=== PATIENT | male | born 1940 | race Caucasian/White ===

== ENCOUNTER → 2018-03-09 07:01 | Outpatient (CLI) | payer OTHER, SELFPAY ==
[2018-03-09 08:19] LABS: Alanine Aminotransferase 30 IU/L (21-72); Albumin 3.8 g/dL (3.5-5.0); Albumin Globulin Ratio 1.3 (1.0-2.8); Alkaline Phosphatase 175 U/L (38-126); Aspartate Aminotransferase 27 IU/L (17-59); BUN Creatinine Ratio 20.9 (6-22); Bilirubin Total 0.7 mg/dL (0.2-1.3); Blood Urea Nitrogen 23 mg/dL (9-20); Calcium 9.3 mg/dL (8.4-10.2); Carbon Dioxide 27 mmol/L (22-32); Chloride 108 mmol/L (98-107); Cholesterol 203 mg/dL (140-199); Estimated Glomerular Filt Rate > 60.0 mL/min (>60); Globulin 2.9 g/dL (1.7-4.1); Glucose 97 mg/dL (80-110); HDL Cholesterol 83 mg/dL (40-60); HEMOLYSIS < 15 (0-50); LDL Cholesterol Calculated 106 mg/dL (<100); Potassium 4.6 mmol/L (3.4-5.1); Sodium 144 mmol/L (137-145); Total Protein 6.7 g/dL (6.3-8.2); Triglycerides 69 mg/dL (35-150)
== END ==
PROVIDERS: Family Provider Internal Medicine; Visit Provider Internal Medicine
DX: N18.2 Chronic kidney disease, stage 2 (mild) (principal)
CPT/HCPCS: 36415; 80053; 80061

== ENCOUNTER 2018-09-14 07:44 | Day surgery (SDC) | payer OTHER, SELFPAY ==
--- NOTE | 2018-09-14 | PATH_ITS ---
[facility] Accession Number: [id number] . 01 Material submitted: . ASCENDING COLON POLYP X2 . 02 Diagnosis: Ascending Colon, Polyps x2, Biopsies: Tubular adenoma in one of four fragments. Benign lymphoid aggregate in one fragment. MRV/09/17/2018 . 02 Electronically signed: . Deisi Solis MD, Pathologist NPI- [id number] . 01 Gross description: . Received in one formalin-filled container labeled with the patient's name and labeled ascending colon polyp, are four 0.1-0.4 cm portions of tissue, entirely submitted in one cassette. ([id number]) /FRR . 02 Pathologist provided ICD-10: D12.2 . 02 CPT . 268932 Performed at: 01 [facility] [address] [id number] MD Chinedu Alcala MD Phone: [phone] Performed at: 02 [facility] [address] [place] [id number] MD Deisi Solis MD Phone: [phone]
[2018-09-14 08:03] VITALS: BP 144/91; PULSE 96; RESP 16; TEMP 36; O2SAT 96; BMI 30.6
[2018-09-14] MEDS: SODIUM CHLORIDE 0.9% 1,000 ML 200 ML IV (08:30)
--- NOTE | 2018-09-14 09:26 | PM.HP.1 ---
History of Present Illness Date Patient Seen: 09/14/18 Time Patient Seen: 09:20 Chief complaint: [id number] COLONOSCOPY Narrative: Patient here for a screening colonoscopy. 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) Sleep apnea (Chronic 2009) History of adenomatous polyp of colon (Inactive 07/30/12) Chicken pox (Resolved 1946) Colon polyps (Resolved) Fractures (Resolved 2013) Measles (Resolved 1946) Rheumatic fever (Resolved 1962) Family & Social History Family History: Reviewed 09/14/18 by Marcial Koenig MD Social History: household members spouse lives independently Yes caregiver/support person No Tobacco & Substance use: Smoking Status Former smoker alcohol intake current Meds Home Medications Medication Instructions Recorded Confirmed Type ascorbic acid (vitamin C) 500 mg mg PO cap 03/05/18 03/05/18 History capsule aspirin 81 mg tablet,delayed 81 mg PO DAILY 03/05/18 09/14/18 History release calcium carbonate 500 mg calcium 500 mg PO BID tab 03/05/18 09/14/18 History (1,250 mg) tablet cholecalciferol (vitamin D3) 1,000 1,000 unit PO DAILY 03/05/18 09/14/18 History unit capsule lutein 6 mg capsule 6 mg PO DAILY 03/05/18 09/14/18 History omega 8-czt-wrj-fish oil 1,000 mg See Label Instructions .ROUTE 03/05/18 09/14/18 History (120 mg-180 mg) capsule .COMPLEX cap Allergies Allergy/AdvReac Type Severity Reaction Status Date / Time No Known Allergies Allergy Uncoded 09/14/18 08:02 Review of Systems Review of Systems All systems reviewed & are unremarkable except as noted in HPI and below Exam Vital Signs (past 8 hours): - 09/14/18 08:03 Temperature 96.8 F L Pulse Rate 96 H Respiratory Rate 16 Blood Pressure 144/91 H Pulse Oximetry 96 Oxygen Delivery Method Room Air Narrative Exam Narrative: Co Operative no apparent distress. Lungs are clear to auscultation no rales or rhonchi. Heart regular rate and rhythm no murmur gallop. Abdomen is protuberant soft nontender without mass. Alert and oriented x3. Assessment & Plan Plan: Assessment/Plan Narrative: Patient for screening colonoscopy. I have discussed the procedure and the rationale with the patient including risks of bleeding, perforation which would necessitate a major operation, failure to find remove all lesions and the potential to tattoo. They appeared to understand and wished to proceed.
--- NOTE | 2018-09-14 09:29 | P.HP_ITS ---
History of Present Illness Date Patient Seen: 09/14/18 Time Patient Seen: 09:20 Chief complaint: [id number] COLONOSCOPY Narrative: Patient here for a screening colonoscopy. No family history and no blood in his stool Patient History Medical History Chronic renal failure, stage 2 (mild) (Chronic) Right bundle branch block (RBBB) with left anterior fascicular block (LAFB) ( Chronic) Sleep apnea (Chronic 2009) History of adenomatous polyp of colon (Inactive 07/30/12) Chicken pox (Resolved 1946) Colon polyps (Resolved) Fractures (Resolved 2013) Measles (Resolved 1946) Rheumatic fever (Resolved 1962) Family & Social History Family History: Reviewed 09/14/18 by Marcial Koenig MD Social History: household members spouse lives independently Yes caregiver/support person No Tobacco & Substance use: Smoking Status Former smoker alcohol intake current Meds Home Medications Medication Instructions Recorded Confirmed Type ascorbic acid (vitamin C) 500 mg mg PO cap 03/05/18 03/05/18 History capsule aspirin 81 mg tablet,delayed 81 mg PO DAILY 03/05/18 09/14/18 History release calcium carbonate 500 mg calcium 500 mg PO BID tab 03/05/18 09/14/18 History (1,250 mg) tablet cholecalciferol (vitamin D3) 1,000 1,000 unit PO DAILY 03/05/18 09/14/18 History unit capsule lutein 6 mg capsule 6 mg PO DAILY 03/05/18 09/14/18 History omega 2-cjd-nfo-fish oil 1,000 mg See Label Instructions .ROUTE 03/05/18 History (120 mg-180 mg) capsule .COMPLEX cap Allergies Allergy/AdvReac Type Severity Reaction Status Date / Time No Known Allergies Allergy Uncoded 09/14/18 08:02 Review of Systems Review of Systems All systems reviewed & are unremarkable except as noted in HPI and below Exam Vital Signs (past 8 hours): - 09/14/18 08:03 Temperature 96.8 F L Pulse Rate 96 H Respiratory Rate 16 Blood Pressure 144/91 H Pulse Oximetry 96 Oxygen Delivery Method Room Air Narrative Exam Narrative: Co Operative no apparent distress. Lungs are clear to auscultation no rales or rhonchi. Heart regular rate and rhythm no murmur gallop. Abdomen is protuberant soft nontender without mass. Alert and oriented x3. Assessment & Plan Plan: Assessment/Plan Narrative: Patient for screening colonoscopy. I have discussed the procedure and the rationale with the patient including risks of bleeding, perforation which would necessitate a major operation, failure to find remove all lesions and the potential to tattoo. They appeared to understand and wished to proceed.
--- NOTE | 2018-09-14 09:30 | PM.PREOP ---
Pre-operative Note Interval Note History & Physical reviewed/Exam performed by Physician: Yes Changes to H&P: No ASA Class (for procedural sedation): I
[2018-09-14] MEDS: MIDAZOLAM 5 MG/5 ML VIAL IV (09:56)
[2018-09-14] MEDS: fentaNYL 250 MCG/5 ML INJ IV (09:57)
--- NOTE | 2018-09-14 10:01 | PM.OP.ENDO ---
Operative Date/Time/Diagnoses Date of procedure: 09/14/18 Time of procedure: 10:01 Pre-op diagnosis: Screening exam. History of polyps. Last colonoscopy 5 years ago. Post-op diagnosis: same (Two tiny polyps removed. Extensive diverticulosis. Minor internal hemorrhoids.) Procedure & Clinicians Study performed: Colonoscopy with cold biopsy Same procedure as scheduled: Yes Indications: Screening Surgeon: Marcial Koenig Procedure Notes SCOAP/Timeout: Performed Procedure in detail: The patient was placed in the left lateral decubitus position and underwent IV sedation directed by the surgeon consisting of fentanyl and Versed. Digital exam was unremarkable. His prostate is flat.. The scope was inserted and advanced through the rectum into the sigmoid, descending, transverse, and ascending colon. The patient was noted to have pandiverticulosis with the by far the heaviest concentration was in the left colon. I noted 2 small polyps in the ascending colon near 1 another. These were biopsied to complete removal. I had to place a stiffener repositioned the patient and applied pressure to reach the cecum.. The cecum was reached identified by the ileocecal valve and the appendiceal opening. The scope was gradually brought out. No other Polyps were found. The scope ultimately was retroflexed in the rectum. The appearance was[]. The scope was removed and the patient tolerated the procedure well Scope withdrawal time: 9 min Sedation minutes: 31 Findings: diverticulosis (Throughout the colon but most heavily concentrated left colon), internal hemorrhoids (Minor) and polyp (Ascending colon polyps.) Specimen(s): other (Polyps) Complications: none Recommendations: Colonscopy in 5 years (If you are in good health) Follow up: as needed Disposition: PACU
[2018-09-14 10:11] VITALS: BP 119/76; PULSE 79; RESP 16; TEMP 36.2; O2SAT 98
[2018-09-14 10:25] VITALS: BP 117/82; PULSE 57; RESP 18; TEMP 36.4; O2SAT 96
--- NOTE | 2018-09-14 10:47 | SUR.PHASEII ---
arrived for filler picker, all voiced an understanding of instructions. pt left in stable condition.
== END 2018-09-14 10:45 | disposition home or self-care (01) ==
PROVIDERS: PCP Internal Medicine; Visit Provider Specialist
PROC: 0DJD8ZZ Inspection of Lower Intestinal Tract, Via Natural or Artificial Opening Endoscopic (ICD-10-PCS; CPT 45378; principal; 2018-09-14 08:45)
DX: Z86.010 Personal history of colon polyps (principal); K57.30 Diverticulosis of large intestine without perforation or abscess without bleeding; K64.8 Other hemorrhoids; D12.2 Benign neoplasm of ascending colon; N18.2 Chronic kidney disease, stage 2 (mild); I45.2 Bifascicular block; G47.30 Sleep apnea, unspecified; Z87.891 Personal history of nicotine dependence
CPT/HCPCS: 45380; 99152; 99153; J2250; J3010

== ENCOUNTER 2019-01-10 10:13 | Emergency (ER) | payer OTHER, SELFPAY ==
[2019-01-10 10:22] VITALS: BP 153/94; PULSE 102; RESP 20; O2SAT 96; BMI 28.8
--- NOTE | 2019-01-10 11:34 | ED.WOUNDLAC ---
HPI - Wound/Laceration General Chief Complaint: Wound/Laceration Stated Complaint: GASH IN RIGHT LEG/LOWER Time Seen by Provider: 01/10/19 11:26 Source: patient Mode of arrival: ambulatory Limitations: no limitations History of Present Illness HPI narrative: Patient is a 78-year-old male who presents with right leg injury. he bumped it on something has a skin tear but actually bled through his socks and his hand there is quite a bit of blood. Bleeding is now controlled. He has no numbness or tingling. Onset (ago): hour(s) Extremity Location: Right: lower leg Related Data Home Medications Medication Instructions Recorded Confirmed ascorbic acid (vitamin C) 500 mg mg PO cap 03/05/18 03/05/18 capsule aspirin 81 mg tablet,delayed 81 mg PO DAILY 03/05/18 09/14/18 release calcium carbonate 500 mg calcium 500 mg PO BID tab 03/05/18 09/14/18 (1,250 mg) tablet cholecalciferol (vitamin D3) 1,000 1,000 unit PO DAILY 03/05/18 09/14/18 unit capsule lutein 6 mg capsule 6 mg PO DAILY 03/05/18 09/14/18 omega 6-ace-ouu-fish oil 1,000 mg See Rx Instructions .ROUTE 03/05/18 09/14/18 (120 mg-180 mg) capsule .COMPLEX cap Allergies Allergy/AdvReac Type Severity Reaction Status Date / Time No Known Allergies Allergy Uncoded 09/14/18 08:02 Review of Systems Review of Systems GENERAL: Denies chills,fever HEENT: Denies throat pain RESPIRATORY: Denies dyspnea, cough, wheezing CARDIOVASCULAR: Denies chest pain, palpitations GASTROINTESTINAL: Denies nausea, vomiting MUSCULOSKELETAL: Denies extremity pain, injury SKIN: See HPI NEUROLOGIC: Denies weakness, dizziness, headache, numbness 8 point review of systems is negative except for those stated above and HPI PFSH Medical History Chronic renal failure, stage 2 (mild) (Chronic) 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) Sleep apnea (Chronic 2009) History of adenomatous polyp of colon (Inactive 07/30/12) Chicken pox (Resolved 1946) Colon polyps (Resolved) Fractures (Resolved 2013) Measles (Resolved 1946) Rheumatic fever (Resolved 1962) Family History Brother Age: 74 Family hx of colon cancer Father Cancer Liver cancer Grandfather Heart disease Mother Pneumonia Rheumatoid arthritis Paraplegia Social History marital status: number of children: 2 household members: spouse lives independently: Yes caregiver/support person: No housing: house pets and animals: Yes education level: high school 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) current occupational exposures/hazards: No suman/baptist: Rastafarian travel history: other ([employer]) leisure activities: other (Hike, Playing in garage, woodworking.) Smoking Status: Former smoker Tobacco: How many years used: 3 Smokeless tobacco user: other (Cigarettes, pipe) quit status: quit date established (1967) second hand exposure: No alcohol intake: current (Glass of wine daily, some scotch once a week.) substance use type: does not use Family History Brother Age: 74 Family hx of colon cancer Father Cancer Liver cancer Grandfather Heart disease Mother Pneumonia Rheumatoid arthritis Paraplegia Social History marital status: number of children: 2 household members: spouse lives independently: Yes caregiver/support person: No housing: house pets and animals: Yes education level: high school 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) current occupational exposures/hazards: No suman/baptist: Rastafarian travel history: other ([employer]) leisure activities: other (Hike, Playing in garage, woodworking.) Smoking Status: Former smoker Tobacco: How many years used: 3 Smokeless tobacco user: other (Cigarettes, pipe) quit status: quit date established (1967) second hand exposure: No alcohol intake: current (Glass of wine daily, some scotch once a week.) substance use type: does not use Exam Initial Vital Signs Initial Vital Signs: Vital Signs Pulse Rate 102 H 01/10/19 10:22 Respiratory Rate 20 01/10/19 10:22 Blood Pressure 153/94 H 01/10/19 10:22 Pulse Oximetry 96 05/02/19 10:22 GENERAL: Well-appearing, well-nourished and in no acute distress. CARDIOVASCULAR: peripheral pulses in tact, cap refill <2 sec RESPIRATORY: No respiratory distress, speaks in full sentences without difficulty EXTREMITIES: Normal range of motion, no clubbing or edema. Neurovascularly intact NEUROLOGICAL: Cranial nerves II through XII grossly intact. Normal gait and speech. SKIN: Skin tear right anterior chicas. Bleeding now controlled. There is a 2 cm laceration with good skin proximity. Procedures Laceration Repair Laceration 1: Site: lower extremity Side (If applicable): right Size (cm): 2 Description: linear Depth: simple, single layer Skin layer closed with: steri-strips Course Vital Signs - 8 hr 01/10/19 10:22 01/10/19 11:48 Pulse Rate 102 H 93 H Respiratory Rate 20 16 Blood Pressure 153/94 H Blood Pressure [Left Arm] 159/100 H Pulse Oximetry 96 98 MDM - Wound/Laceration MDM Narrative Medical decision making narrative: Juliet dressing placed. Overall bleeding has stopped Discharge Plan Departure Patient Disposition: Home Clinical Impression: Laceration of leg, right Qualifiers: Encounter type: initial encounter Qualified Code(s): S81.811A - Laceration without foreign body, right lower leg, initial encounter Discharge Date/Time: 01/10/19 11:51 Interventions: ED Discharge Assessment Last Done: 01/10/19 11:50 Instructions: How to Care for a Surgical Wound-Skin Adhesive Activity Restrictions/Additional Instructions: *You have been diagnosed with skin tear of right leg *What to do: Keep pink bandage on for up to 1week, it will help the wound heal. *Continue to take medications as directed *Follow up with your primary care provider in 2-3 days *Return to ER if you should have redness, swelling, pain, fever or any new, worsening or concerning symptoms Prescriptions: No Action aspirin 81 mg tablet,delayed release (DR/EC) 81 mg PO DAILY RF: 0 cholecalciferol (vitamin D3) 1,000 unit capsule 1,000 unit PO DAILY RF: 0 ascorbic acid (vitamin C) 500 mg capsule PO RF: 0 omega 8-srg-rms-fish oil [Fish Oil] 1,000 mg (120 mg-180 mg) capsule See Rx Instructions .ROUTE .COMPLEX RF: 0 lutein 6 mg capsule 6 mg PO DAILY RF: 0 calcium carbonate [Calcium 500] 500 mg calcium (1,250 mg) tablet 500 mg PO BID RF: 0 Referrals: Manjinder Hernandez MD [Primary Care Provider] -
[2019-01-10 11:48] VITALS: BP 159/100; PULSE 93; RESP 16; O2SAT 98
--- NOTE | 2019-01-10 18:06 | ED_ITS ---
HPI - Wound/Laceration General Chief Complaint: Wound/Laceration Stated Complaint: GASH IN RIGHT LEG/LOWER Time Seen by Provider: 01/10/19 11:26 Source: patient Mode of arrival: ambulatory Limitations: no limitations History of Present Illness HPI narrative: Patient is a 78-year-old male who presents with right leg injury. he bumped it on something has a skin tear but actually bled through his socks and his hand there is quite a bit of blood. Bleeding is now controlled. He has no numbness or tingling. Onset (ago): hour(s) Extremity Location: Right: lower leg Related Data Home Medications Medication Instructions Recorded Confirmed ascorbic acid (vitamin C) 500 mg mg PO cap 03/05/18 03/05/18 capsule aspirin 81 mg tablet,delayed 81 mg PO DAILY 03/05/18 09/14/18 release calcium carbonate 500 mg calcium 500 mg PO BID tab 03/05/18 09/14/18 (1,250 mg) tablet cholecalciferol (vitamin D3) 1,000 1,000 unit PO DAILY 03/05/18 09/14/18 unit capsule lutein 6 mg capsule 6 mg PO DAILY 03/05/18 09/14/18 omega 3-rdx-lju-fish oil 1,000 mg See Rx Instructions .ROUTE 03/05/18 09/14/18 (120 mg-180 mg) capsule .COMPLEX cap Allergies Allergy/AdvReac Type Severity Reaction Status Date / Time No Known Allergies Allergy Uncoded 09/14/18 08:02 Review of Systems Review of Systems GENERAL: Denies chills,fever HEENT: Denies throat pain RESPIRATORY: Denies dyspnea, cough, wheezing CARDIOVASCULAR: Denies chest pain, palpitations GASTROINTESTINAL: Denies nausea, vomiting MUSCULOSKELETAL: Denies extremity pain, injury SKIN: See HPI NEUROLOGIC: Denies weakness, dizziness, headache, numbness 8 point review of systems is negative except for those stated above and HPI PFSH Medical History Chronic renal failure, stage 2 (mild) (Chronic) Right bundle branch block (RBBB) with left anterior fascicular block (LAFB) ([facility]) Sleep apnea (Chronic 2009) History of adenomatous polyp of colon (Inactive 07/30/12) Chicken pox (Resolved 1946) Colon polyps (Resolved) Fractures (Resolved 2013) Measles (Resolved 1946) Rheumatic fever (Resolved 1962) Family History Brother Age: 74 Family hx of colon cancer Father Cancer Liver cancer Grandfather Heart disease Mother Pneumonia Rheumatoid arthritis Paraplegia Social History marital status: number of children: 2 household members: spouse lives independently: Yes caregiver/support person: No housing: house pets and animals: Yes education level: high school 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 occupational exposures/hazards: No suman/jainism: Confucianism travel history: other ([employer]) leisure activities: other (Hike, Playing in garage, woodworking.) Smoking Status: Former smoker Tobacco: How many years used: 3 Smokeless tobacco user: other (Cigarettes, pipe) quit status: quit date established (1967) second hand exposure: No alcohol intake: current (Glass of wine daily, some scotch once a week.) substance use type: does not use Family History Brother Age: 74 Family hx of colon cancer Father Cancer Liver cancer Grandfather Heart disease Mother Pneumonia Rheumatoid arthritis Paraplegia Social History marital status: number of children: 2 household members: spouse lives independently: Yes caregiver/support person: No housing: house pets and animals: Yes education level: high school 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 occupational exposures/hazards: No suman/jainism: Confucianism travel history: other ([employer]) leisure activities: other (Hike, Playing in garage, woodworking.) Smoking Status: Former smoker Tobacco: How many years used: 3 Smokeless tobacco user: other (Cigarettes, pipe) quit status: quit date established (1967) second hand exposure: No alcohol intake: current (Glass of wine daily, some scotch once a week.) substance use type: does not use Exam Initial Vital Signs Initial Vital Signs: Vital Signs Pulse Rate 102 H 01/10/19 10:22 Respiratory Rate 20 01/10/19 10:22 Blood Pressure 153/94 H 01/10/19 10:22 Pulse Oximetry 96 01/10/19 10:22 GENERAL: Well-appearing, well-nourished and in no acute distress. CARDIOVASCULAR: peripheral pulses in tact, cap refill <2 sec RESPIRATORY: No respiratory distress, speaks in full sentences without difficulty EXTREMITIES: Normal range of motion, no clubbing or edema. Neurovascularly intact NEUROLOGICAL: Cranial nerves II through XII grossly intact. Normal gait and speech. SKIN: Skin tear right anterior chicas. Bleeding now controlled. There is a 2 cm laceration with good skin proximity. Procedures Laceration Repair Laceration 1: Site: lower extremity Side (If applicable): right Size (cm): 2 Description: linear Depth: simple, single layer Skin layer closed with: steri-strips Course Vital Signs - 8 hr 01/10/19 10:22 01/10/19 11:48 Pulse Rate 102 H 93 H Respiratory Rate 20 16 Blood Pressure 153/94 H Blood Pressure [Left Arm] 159/100 H Pulse Oximetry 96 98 MDM - Wound/Laceration MDM Narrative Medical decision making narrative: Juliet dressing placed. Overall bleeding has stopped Discharge Plan Departure Patient Disposition: Home Clinical Impression: Laceration of leg, right Qualifiers: Encounter type: initial encounter Qualified Code(s): S81.811A - Laceration without foreign body, right lower leg, initial encounter Discharge Date/Time: 01/10/19 11:51 Interventions: ED Discharge Assessment Last Done: 01/10/19 11:50 Instructions: How to Care for a Surgical Wound-Skin Adhesive Activity Restrictions/Additional Instructions: *You have been diagnosed with skin tear of right leg *What to do: Keep pink bandage on for up to 1week, it will help the wound heal. *Continue to take medications as directed *Follow up with your primary care provider in 2-3 days *Return to ER if you should have redness, swelling, pain, fever or any new, worsening or concerning symptoms Prescriptions: No Action aspirin 81 mg tablet,delayed release (DR/EC) 81 mg PO DAILY RF: 0 cholecalciferol (vitamin D3) 1,000 unit capsule 1,000 unit PO DAILY RF: 0 ascorbic acid (vitamin C) 500 mg capsule PO RF: 0 omega 2-tgh-ggu-fish oil [Fish Oil] 1,000 mg (120 mg-180 mg) capsule See Rx Instructions .ROUTE .COMPLEX RF: 0 lutein 6 mg capsule 6 mg PO DAILY RF: 0 calcium carbonate [Calcium 500] 500 mg calcium (1,250 mg) tablet 500 mg PO BID RF: 0 Referrals: Manjinder Hernandez MD [Primary Care Provider] -
== END 2019-01-10 11:51 | disposition home or self-care (01) ==
PROVIDERS: Emergency Provider Emergency Medicine; PCP Internal Medicine
DX: S81.811A Laceration without foreign body, right lower leg, initial encounter (principal)
CPT/HCPCS: 99282; 99283

== ENCOUNTER → 2019-06-07 09:53 | Outpatient (CLI) | payer OTHER, SELFPAY ==
--- NOTE | 2019-06-07 09:55 | DI.RAD.S_ITS ---
PROCEDURE: XR CHEST 2V INDICATIONS: episodes of SOB TECHNIQUE: 2 views of the chest were acquired. COMPARISON: None. FINDINGS: Surgical changes and devices: None. Lungs and pleura: No acute consolidation. Scattered subsegmental atelectasis and/or scarring. No pleural effusion. No pneumothorax. Mediastinum: Mediastinal contours are normal. Heart size is normal. Bones and chest wall: Age-indeterminate mid thoracic compression fracture with mild anterior height loss. Multilevel degenerative endplate sclerosis and spurring. Diffuse facet arthropathy. Dextroscoliosis. IMPRESSION: No acute disease. Scattered scarring/atelectasis. Age-indeterminate mid thoracic compression fracture. Dextroscoliosis Dictated by: Christopher Carmona M.D. on 06/07/2019 at 10:29 Approved by: Christopher Carmona M.D. on 06/07/2019 at 10:31
[2019-06-07 10:38] LABS: Hematocrit 44.3 % (41-53); Hemoglobin 14.7 g/dL (13.5-17.5); Mean Corpuscular HGB Conc 33.3 % (30-36); Mean Corpuscular Hemoglobin 31.3 PG (26-34); Mean Corpuscular Volume 94.1 fL (80-100); Platelet Count 166 X10^3/uL (150-400); Red Cell Distribution Width 15.4 % (11.6-14.8); White Blood Cell Count 5.2 X10^3/uL (4.5-11.0)
[2019-06-07 10:48] LABS: Blood Urea Nitrogen 22 mg/dL (9-20); Calcium 9.7 mg/dL (8.4-10.2); Carbon Dioxide 30 mmol/L (22-32); Chloride 106 mmol/L (98-107); Estimated Glomerular Filt Rate > 60.0 mL/min (>60); Glucose 84 mg/dL (80-110); HEMOLYSIS < 15 (0-50); Potassium 4.8 mmol/L (3.4-5.1); Sodium 143 mmol/L (137-145)
== END ==
PROVIDERS: PCP Internal Medicine; Visit Provider Nurse Practitioner Family
DX: R06.02 Shortness of breath (principal)
CPT/HCPCS: 36415; 71046; 80048; 85027

== ENCOUNTER → 2019-06-26 06:49 | Outpatient (CLI) | payer OTHER, SELFPAY ==
--- NOTE | 2019-06-26 06:51 | DI.ECHO.S_ITS ---
[facility] +---------+ : : [address] : : : : [id number] : : : : Phone: [phone]---------+ Echocardiogram Report + + :Name: TANISHA WARD Study Date: 06/26/2019 Height: 74 in : :[facility] Weight: 225 lb : : Gender: Male BSA: 2.3 m2 : :: 1940 Age: 79 yrs BP: 146/77 mmHg: :Reason For Study: SOB : : Performed By: Cricket Linton : :Referring: FABI BALL : + + Interpretation Summary Left ventricular ejection fraction is estimated to be 55 +/- 5%. Apical hypokinesis which is more pronounced in the lateral and inferior lea. This is new since 2009 There is mild mitral regurgitation. There is mild aortic regurgitation. The right ventricular systolic pressure is estimated to be at least 23 mmHg based on an estimated right atrial pressure of 3 mm Hg. Procedure: A two-dimensional transthoracic echocardiogram with color flow and Doppler was performed. The study quality was technically good. Comparison is made with the echocardiogram of 07/14/10. The patient was in normal sinus rhythm during the exam. The patient had frequent PACs during the exam. Left Ventricle: The left ventricle is normal in size. There is normal left ventricular wall thickness. Left ventricular ejection fraction is estimated to be 55 +/- 5%. Apical hypokinesis which is more pronounced in the lateral and inferior lea. This is new since 2010. Right Ventricle: The right ventricle is at the upper limits of normal in size. The right ventricular systolic function is normal. Atria: The left atrium is moderately dilated. Right atrial size is normal. The interatrial septum is intact with no evidence for an atrial septal defect. Mitral Valve: The mitral valve is normal in structure and function. There is mild mitral annular calcification. There is mild mitral regurgitation. Aortic Valve: The aortic valve is trileaflet. The aortic valve opens well. There is mild aortic regurgitation. Tricuspid Valve: The tricuspid valve is normal in structure and function. There is trace tricuspid regurgitation. The right ventricular systolic pressure is estimated to be at least 23 mmHg based on an estimated right atrial pressure of 3 mm Hg. Pulmonic Valve: The pulmonic valve is normal in structure and function. There is no pulmonic valvular regurgitation. Great Vessels: The aortic root is normal size. The ascending aorta is mildly enlarged. The pulmonary artery is normal size. The IVC is of normal diameter and collapses greater than 50% with a sniff. This suggests a low right atrial pressure of 3 mm Hg. Pericardium/ Pleura There is no pericardial effusion. There is no pleural effusion. MMode/2D Measurements & Calculations LVIDd: 5.6 cm LVOT diam: 2.5 cm LVIDs: 3.7 cm Ao root diam: 3.8 cm FS: 34.7 % Aortic Jxn: 3.3 cm EPSS: 0.51 cm asc Aorta Diam: 3.8 cm IVSd: 1.00 cm Ao Arch Diam (Prox Trans): 3.0 cm LVPWd: 1.1 cm LV thibodeaux. diameter/BSA (cm/m^2): 2.5 LV sys. diameter/BSA (cm/m^2): 1.6 LA dimension: 4.1 cm RA long axis: 6.1 cm LA A2 area: 27.0 cm2 RA area: 21.4 cm2 LA A4 area: 29.0 cm2 RA vol: 64.5 ml LA length (vol): 6.2 cm RA : 28.2 ml/m2 LA vol: 107.8 ml IVC diam: 2.0 cm LA vol index: 47.2 ml/m2 RVD1 (basal): 4.2 cm RVD2 (mid): 4.1 cm Doppler Measurements & Calculations Ao V2 max: 166.4 cm/sec LVOT Max Pablo: 118.2 cm/sec Ao V2 mean: 124.5 cm/sec LV V1 max P.6 mmHg Ao max P.1 mmHg LV V1 VTI: 24.6 cm Ao mean P.7 mmHg ANDRES(I,D): 3.5 cm2 Ao V2 VTI: 33.8 cm ANDRES(V,D): 3.5 cm2 sev ratio: 0.73 ANDRES indexed to BSA (cm^2/m^2): 1.5 MV E max pablo: 55.8 cm/sec TR max pablo: 225.8 cm/sec MV A max pablo: 72.7 cm/sec TR max P.4 mmHg MV E/A: 0.77 PA V2 max: 79.2 cm/sec Med Peak E' Pablo: 6.5 cm/sec PA V2 mean: 60.7 cm/sec E/E' med: 8.6 PA mean P.6 mmHg Lat Peak E' Pablo: 4.1 cm/sec PA pr(Accel): 59.0 mmHg E/E' lat: 13.6 PA Accel Time: 0.05 sec E/e' average: 11.1 MV dec time: 0.15 sec SV(LVOT): 119.6 ml Reading Physician:11:09 AM
== END ==
PROVIDERS: PCP Internal Medicine; Visit Provider Nurse Practitioner Family
DX: I08.0 Rheumatic disorders of both mitral and aortic valves (principal); R06.02 Shortness of breath; I77.89 Other specified disorders of arteries and arterioles
CPT/HCPCS: 93306

== ENCOUNTER → 2019-07-16 13:40 | Outpatient (CLI) | payer OTHER, SELFPAY ==
--- NOTE | 2019-07-16 14:53 | PM.TREADMILL ---
Cardiac Stress Test Report Referral & Results Date Patient Seen: 07/16/19 Requesting provider: Manjinder Hernandez Indication: Chest symptoms Rest ECG: Right bundle branch block (old) Procedure Note: Today following both written and verbal informed consent the patient was exercised according to a standard Parminder protocol patient went for a total of 5 minutes 48 seconds achieving a maximum heart rate of 115 maximum systolic blood pressure of 180. This is approximately 7.0 METS. Exercise was terminated at this point because of targets were met. Patient was also given Cardiolite through a previously started Hep-Lock IV by the diagnostic imaging staff approximately 1 minute prior to the cessation of exercise. No ST-T segment changes Perhaps slightly tachycardic but normal blood pressure response to exercise No dysrhythmias Functional aerobic impairment rates about 10% on the active scale, patient could have continued longer but I stopped the test at the point I did because targets were achieved Impression: No evidence of ischemia based on usual ECG criteria Average exercise capacity Please see perfusion imaging report as well Please note: Actual ECG tracings can be found in the PACS system.
--- NOTE | 2019-07-17 16:56 | DI.NM.S_ITS ---
DATE OF SERVICE: 07/16/2019 PROCEDURE PERFORMED: Exercise treadmill stress and rest myocardial perfusion imaging study with gating to assess ejection fraction and regional wall motion. ORDERING PROVIDER: Vinh Leos NP INDICATIONS: The patient is a 79-year-old ex-smoker who reports acute exertional dyspnea and fatigue. EXERCISE TREADMILL TESTING: The patient was able to exercise for 5 minutes 48 seconds on a standard Parminder protocol suggesting mildly impaired exercise capacity with an JANEY of +10%. He had a moderately accelerated heart rate response to exercise with a resting heart rate of 86 bpm increasing to 130 bpm after 3 minutes of exercise with a peak HR of 150 bpm (105% of his predicted maximum). He had a normal blood pressure response. He had no chest discomfort. His resting ECG shows sinus rhythm with a RBBB and LAFB but relatively normal ST- segments. With exercise, there are no significant ST segment shifts or arrhythmias. At 4 minutes 50 seconds of exercise, at heart rate of 140 bpm, 24.8 mCi of technetium-99 Myoview was injected and the patient was imaged 15 minutes later using a gated SPECT acquisition protocol. He returned the following day and was reinjected with an additional 24.5 mCi of technetium-99 Myoview and was imaged 30 minutes later, again using a gated SPECT protocol. FINDINGS: 1. Raw Data: There is fair myocardial tracer uptake with some evidence for diaphragmatic attenuation. The lung/heart ratio is normal at 0.40 and the TID ratio is normal at 0.91. 2. Quantitative Gated SPECT: Post stress ejection fraction is estimated at 64% without any focal wall motion abnormality and specifically, the inferior wall appears to have normal contractility. The resting ejection fraction is 54% but appears similar to that of the post stress images. Left ventricular volumes are mildly increased with an end-diastolic volume of 142 mL. 3. Myocardial Perfusion Imaging: Post stress supine images show a fairly normal perfusion pattern with mildly reduced tracer activity in the proximal and mid inferior wall extending subtly into the distal inferior wall in a pattern that would be consistent with diaphragmatic attenuation. This is supported by its near-complete resolution on the prone position. The resting images show an identical perfusion pattern without any areas of improvement and specifically, the inferior wall appears unchanged, most consistent with diaphragmatic attenuation. CONCLUSIONS: 1. Probable normal myocardial perfusion study for ischemia. 2. Mild fixed proximal and mid inferior defect that resolves on prone imaging, most consistent with diaphragmatic attenuation artifact. There is no compelling evidence for myocardial ischemia or previous myocardial infarction. 3. Normal left ventricular systolic function but with mildly increased left ventricular volumes. 4. Mildly reduced exercise capacity without angina or ECG evidence of ischemia. He had a modestly brisk chronotropic response to exercise. Aleksandr Bloom - SANTOS/edil/ab doc#: [id number]/job#: [id number] dd: 07/17/2019 16:22:00 dt: 07/17/2019 16:42:00 DICTATING MD/COPIES TO: Phillip Tong MD; Vinh Leos NP COPIES MNE: BIRGIT HEIN
== END ==
PROVIDERS: Family Provider Internal Medicine; PCP Internal Medicine; Visit Provider Nurse Practitioner Family
DX: R06.02 Shortness of breath (principal); R07.89 Other chest pain; R06.09 Other forms of dyspnea; R53.83 Other fatigue; Z87.891 Personal history of nicotine dependence
CPT/HCPCS: 78452; 93016; 93017; 93018; A9502

== ENCOUNTER → 2020-07-25 08:56 | Outpatient (CLI) | payer MEDICARE, SELFPAY ==
[2020-07-25 09:45] LABS: COVID19 -Nasal RAPID Negative (Negative)
== END ==
PROVIDERS: Family Provider Internal Medicine; PCP Internal Medicine; Visit Provider Physician Assistant
DX: Z11.59 Encounter for screening for other viral diseases (principal)
CPT/HCPCS: 87635

== ENCOUNTER 2020-07-28 07:29 | Day surgery (SDC) | payer MEDICARE, SELFPAY ==
[2020-07-28] MEDS: PROPARACAINE 0.5% OPHTH SOL 2 DROPS EYE-OP (07:47)
[2020-07-28] MEDS: CATARACT EYE COMPOUND (10 DROPS/SYRINGE) 3 DROPS EYE-OP (07:47)
[2020-07-28 07:48] VITALS: BP 155/81; PULSE 74; RESP 16; TEMP 36.4; O2SAT 98; BMI 28.8
--- NOTE | 2020-07-28 08:58 | PM.PREOP ---
Pre-operative Note Interval Note History & Physical reviewed/Exam performed by Physician: Yes Changes to H&P: No
--- NOTE | 2020-07-28 08:58 | PM.OP.1 ---
Operative Date/Time/Diagnoses Pre-op diagnosis: Nuclear cataract right eye Procedure & Clinicians Procedure: Cataract Surgery Same procedure as scheduled: Yes Surgeon: Dayday Santoro Anesthesia Type: MAC +/- and Sedation Operative Notes Procedure in detail: Patient brought to the operating suite. Tetracaine drops placed in the right eye. Patient was prepped and draped in sterile manner. Wire lid speculum was placed in the eye. Betadine drops were placed on the eye. This was irrigated. Lidocaine jelly was placed on the eye. A paracentesis port was created with a side-port blade. 0.1 mL 1% preservative free lidocaine was injected into the anterior chamber. The anterior chamber was deepened with viscoelastic. 2.6 mm keratome was used to create a temporal clear corneal incision. Cystotome and Utrata forceps were used to create continuous tear capsulorrhexis. Balanced salt solution was used to hydro dissect the nucleus. The phacoemulsification handpiece was inserted and the nucleus was removed using the stop and chop technique. The irrigation aspiration handpiece was inserted and the remaining cortex was removed. Anterior chamber was deepened with viscoelastic. An Murry ZCB00 intraocular lens with a power of 21.0 was injected into the capsular bag. Irrigation aspiration handpiece was inserted and the remaining viscoelastic was removed. Incision was hydrated with balanced salt solution and found to be leak free with pressure with Weck-Caren sponges. 0.1 mL Vigamox injected anterior chamber. 0.3 mL Kenalog 10 mg was injected subconjunctivally. Lid speculum was removed. The patient left the operating room in excellent condition. Complications: none Post-operative Condition: stable Disposition: same day surgery
[2020-07-28] MEDS: MOXIFLOXACIN INJ 5 MG/ML VIAL EYE-OP (09:17)
[2020-07-28] MEDS: PHENYLEPHRINE/LIDOCAINE VIAL (OR) 0.2 ML EYE-OP (09:17)
[2020-07-28] MEDS: TETRACAINE 0.5% OPHTH DROPS 4 ML 2 DROPS EYE-OP (09:18)
[2020-07-28] MEDS: CHONDROIDTIN/SOD HYALURONATE 1.05 ML SYRINGE INTRAOCULA (09:18)
[2020-07-28] MEDS: TRIAMCINOLONE 50 MG/5 ML VIAL INJ (09:18)
[2020-07-28] MEDS: LIDOCAINE JELLY 2% 5 ML 1 APPLIC TOP (09:18)
[2020-07-28] MEDS: BALANCED SALT IRRIG SOLN NO.2 500 ML, EPINEPHrine 1 MG IRR (09:18)
[2020-07-28 09:28] VITALS: BP 140/76; PULSE 55; RESP 16; TEMP 36.5; O2SAT 98
== END 2020-07-28 09:39 | disposition home or self-care (01) ==
PROVIDERS: Family Provider Internal Medicine; PCP Internal Medicine; Referring Provider Internal Medicine; Visit Provider Ophthalmology
PROC: (CPT 66984; principal; 2020-07-28 09:15)
DX: H25.11 Age-related nuclear cataract, right eye (principal)
CPT/HCPCS: 66984; J0171; J2250; J3010; J3301

== ENCOUNTER → 2020-08-08 13:43 | Outpatient (CLI) | payer MEDICARE, SELFPAY ==
[2020-08-08 14:56] LABS: COVID19 -Nasal RAPID Negative (Negative)
== END ==
PROVIDERS: Family Provider Internal Medicine; PCP Internal Medicine; Visit Provider Nurse Practitioner
DX: Z11.59 Encounter for screening for other viral diseases (principal)
CPT/HCPCS: 87635

== ENCOUNTER 2020-08-11 06:30 | Day surgery (SDC) | payer MEDICARE, SELFPAY ==
[2020-08-11] MEDS: PROPARACAINE 0.5% OPHTH SOL 2 DROPS EYE-OP (07:09)
[2020-08-11] MEDS: CATARACT EYE COMPOUND (10 DROPS/SYRINGE) 3 DROPS EYE-OP (07:12)
[2020-08-11 07:14] VITALS: BP 146/82; PULSE 59; RESP 12; TEMP 36.3; O2SAT 100; BMI 63.3
--- NOTE | 2020-08-11 07:34 | P.OP_ITS ---
Operative Date/Time/Diagnoses Pre-op diagnosis: Nuclear Cataract Left eye Post-op diagnosis: same Procedure & Clinicians Same procedure as scheduled: Yes Surgeon: Dayday Santoro Anesthesia Type: MAC +/- and Sedation Operative Notes Procedure in detail: Patient brought to the operating suite. Tetracaine drops placed in the left eye. Patient was prepped and draped in sterile manner. Wire lid speculum was placed in the eye. Betadine drops were placed on the eye. This was irrigated. Lidocaine jelly was placed on the eye. A paracentesis port was created with a side-port blade. 0.1 mL 1% preservative free lidocaine was injected into the anterior chamber. The anterior chamber was deepened with viscoelastic. 2.6 mm keratome was used to create a temporal clear corneal incision. Cystotome and Utrata forceps were used to create continuous tear capsulorrhexis. Balanced salt solution was used to hydro dissect the nucleus. The phacoemulsification handpiece was inserted and the nucleus was removed using the stop and chop technique. The irrigation aspiration handpiece was inserted and the remaining cortex was removed. Anterior chamber was deepened with viscoe lastic. An Murry ZCB00 intraocular lens with a power of 21.5 was injected into the capsular bag. Irrigation aspiration handpiece was inserted and the remaining viscoelastic was removed. Incision was hydrated with balanced salt solution and found to be leak free with pressure with Weck-Caren sponges. 0.1 mL Vigamox injected anterior chamber. 0.3 mL Kenalog 10 mg was injected subconjunctivally. Lid speculum was removed. The patient left the operating room in excellent condition. Complications: none Post-operative Condition: stable Disposition: same day surgery
--- NOTE | 2020-08-11 07:34 | PM.PREOP ---
Pre-operative Note Interval Note History & Physical reviewed/Exam performed by Physician: Yes Changes to H&P: No
[2020-08-11] MEDS: TRIAMCINOLONE 50 MG/5 ML VIAL INJ (07:44)
[2020-08-11] MEDS: MOXIFLOXACIN INJ 5 MG/ML VIAL EYE-OP (07:44)
[2020-08-11] MEDS: PHENYLEPHRINE/LIDOCAINE VIAL (OR) 0.2 ML EYE-OP (07:44)
[2020-08-11] MEDS: LIDOCAINE JELLY 2% 5 ML 1 APPLIC TOP (07:45)
[2020-08-11] MEDS: BALANCED SALT IRRIG SOLN NO.2 500 ML, EPINEPHrine 1 MG IRR (07:45)
[2020-08-11] MEDS: CHONDROIDTIN/SOD HYALURONATE 1.05 ML SYRINGE INTRAOCULA (07:45)
[2020-08-11] MEDS: TETRACAINE 0.5% OPHTH DROPS 4 ML 2 DROPS EYE-OP (07:45)
[2020-08-11 07:56] VITALS: BP 147/83; PULSE 54; RESP 12; TEMP 36.3; O2SAT 99
== END 2020-08-11 08:09 | disposition home or self-care (01) ==
PROVIDERS: Family Provider Internal Medicine; PCP Internal Medicine; Referring Provider Internal Medicine; Visit Provider Ophthalmology
PROC: (CPT 66984; principal; 2020-08-11 07:45)
DX: H25.12 Age-related nuclear cataract, left eye (principal); G47.33 Obstructive sleep apnea (adult) (pediatric)
CPT/HCPCS: 66984; J0171; J2250; J3010; J3301

== ENCOUNTER → 2020-11-23 08:45 | Outpatient (CLI) | payer MEDICARE, SELFPAY ==
[2020-11-23] MEDS: COVID-19 VACC, Ad26(JANSSEN)/PF 0.5 ML IM (08:50)
== END ==
PROVIDERS: Family Provider Internal Medicine; PCP Internal Medicine; Visit Provider Internal Medicine
DX: Z23 Encounter for immunization (principal)
CPT/HCPCS: 0031A; 91303

== ENCOUNTER → 2021-10-27 08:08 | Outpatient (CLI) | payer MEDICARE, SELFPAY ==
[2021-10-27 09:50] LABS: Alanine Aminotransferase 22 IU/L (<50); Albumin 3.9 g/dL (3.5-5.0); Albumin Globulin Ratio 1.3 (1.0-2.8); Alkaline Phosphatase 108 U/L (38-126); Aspartate Aminotransferase 28 IU/L (17-59); BUN Creatinine Ratio 18.3 (6-22); Bilirubin Total 0.8 mg/dL (0.2-1.3); Blood Urea Nitrogen 20 mg/dL (9-20); Calcium 9.5 mg/dL (8.4-10.2); Carbon Dioxide 30 mmol/L (22-32); Chloride 109 mmol/L (98-107); Cholesterol 214 mg/dL (140-199); Estimated Glomerular Filt Rate > 60.0 mL/min (>60); Globulin 2.9 g/dL (1.7-4.1); Glucose 97 mg/dL (80-110); HDL Cholesterol 72 mg/dL (40-60); HEMOLYSIS < 15 (0-50); LDL Cholesterol Calculated 128 mg/dL (<100); Potassium 4.5 mmol/L (3.4-5.1); Sodium 141 mmol/L (137-145); Total Protein 6.8 g/dL (6.3-8.2); Triglycerides 69 mg/dL (35-150)
== END ==
PROVIDERS: Family Provider Internal Medicine; PCP Internal Medicine; Referring Provider Internal Medicine; Visit Provider Internal Medicine
DX: G47.33 Obstructive sleep apnea (adult) (pediatric) (principal); I45.2 Bifascicular block; N18.2 Chronic kidney disease, stage 2 (mild); Z13.1 Encounter for screening for diabetes mellitus; Z13.220 Encounter for screening for lipoid disorders
CPT/HCPCS: 36415; 80053; 80061

== ENCOUNTER → 2022-02-15 13:08 | Outpatient (CLI) | payer MEDICARE, SELFPAY ==
[2022-02-15 15:02] LABS: COVID19 -Nasal RAPID Negative (Negative)
== END ==
PROVIDERS: Family Provider Internal Medicine; PCP Internal Medicine; Visit Provider Surgery
DX: Z20.822 Contact with and (suspected) exposure to COVID-19 (principal); Z01.812 Encounter for preprocedural laboratory examination
CPT/HCPCS: 87635; C9803

== ENCOUNTER 2022-02-16 09:16 | Day surgery (SDC) | payer MEDICARE, SELFPAY ==
[2022-02-14 10:45] VITALS: BMI 28.8
[2022-02-16 09:42] VITALS: BP 152/89; PULSE 69; RESP 16; TEMP 37; O2SAT 98; BMI 28.8
--- NOTE | 2022-02-16 09:56 | PM.PREOP ---
Pre-operative Note Interval Note History & Physical reviewed/Exam performed by Physician: Yes Changes to H&P: No
[2022-02-16] MEDS: LACTATED RINGERS 1,000 ML 100 ML IV (10:01)
[2022-02-16] MEDS: CEFAZOLIN 2 GM/20 ML SYRINGE IV (10:27)
--- NOTE | 2022-02-16 10:32 | SUR.OPER ---
Supine on padded OR bed, head on pillow, arms secured on padded arm boards at <90 degrees abduction, legs uncrossed, safety belt at thigh, tape over blanket over lower legs, gel padding underneath bilateral heels.
[2022-02-16 12:05] VITALS: BP 144/86; PULSE 84; RESP 16; O2SAT 98
[2022-02-16] MEDS: BUPIVACAINE 0.25% (PF) VIAL 30 ML INJ (12:05)
[2022-02-16 12:08] VITALS: BP 138/85; PULSE 83; RESP 17; TEMP 36.6; O2SAT 95
--- NOTE | 2022-02-16 12:09 | P.OP_ITS ---
Operative Date/Time/Diagnoses Date of procedure: 02/16/22 Time of procedure: 12:09 Pre-op diagnosis: bilateral inguinal hernia Post-op diagnosis: same Procedure & Clinicians Procedure: open bilateral inguinal hernia repair with mesh Same procedure as scheduled: Yes Indications: large bilateral inguinal hernia Surgeon: Gabriel Martinez Yes if Unassisted: Yes Anesthesia Type: General Operative Notes Findings: Large direct floor defects. Right floor obliterated. No indirect defects Specimen(s): none sent Estimated Blood Loss (mL): 20 Procedure in detail: The patient was placed supine on the table and bilateral lower extremity compression devices were applied. Anesthesia was induced they were intubated with an endotracheal tube and received Ancef. A time-out was performed. They were prepped and draped in sterile fashion. The right external inguinal ring and the anterior superior iliac crest were identified and marked. 1 finger breath above the inguinal ligament the skin was infiltrated with 0.25% bupivacaine. The skin incision was made here and the subcutaneous tissues were divided with electrocautery exposing the external oblique aponeurosis which was then opened along the direction of its fibers. The cord was carefully dissected away from the inguinal canal adjacent to the pubic tubercle. The cord including the vas deferens, testicular bloody supply, ilioguinal and genital nerve were encircled with a [place] drain. A large direct floor defect was identified the floor had been obliterated. A plug of mesh was placed into the remnant of the floor and then secured to the adjacent fascia. The Cremasteric fibers surrounding the cord were divided using electrocautery adjacent to the internal ring.. The vas deferens and the testicular vessels were preserved and protected. There was no indirect hernia. I selected a 7x 15 cm lightweight Pro Loop hernia mesh. The inferior medial aspect of the mesh was anchored to insertion of the rectus muscle to the pubic tubercle such that there was approximately 2 cm of tubercle overlap with Ethibond and then was run in interrupted fashion along the inferior edge of the mesh to the shelving edge of the inguinal ligament. Interrupted 3 0 Vicryl suture was used to anchor the superior aspect of the mesh to the conjoined tendon in several places. The tails were then reapproximated loosely around the spermatic cord. The tails of the mesh were then tucked under the external oblique aponeurosis. The repair was checked for hemostasis. The wound was irrigated with sterile saline. The external oblique aponeurosis was reapproximated in a running fashion using 3 0 Vicryl. The subcutaneous tissues were reapproximated with 3 0 Vicryl skin closed with 4 0 Monocryl followed by the application of Dermabond. The procedure was then commenced in the same fashion for the left side. The left side repair was notable for a large direct floor defect the floor was more intact than the right side. There was no evidence of an indirect hernia. At the end of the operation I ensured that both testicles were within the scrotum. The sponge instrument count at the end operation was correct. The patient emerged from anesthesia was extubated and transferred to the postoperative care unit in stable condition. A total of 30 ml of of 0.25% bupivicaine was used to infiltrate the skin. Complications: none Post-operative Condition: stable Disposition: same day surgery
[2022-02-16 12:10] VITALS: BP 143/87; PULSE 78; RESP 111; O2SAT 95
[2022-02-16 12:23] VITALS: BP 146/85; PULSE 75; RESP 15; TEMP 36.6; O2SAT 99
[2022-02-16] MEDS: OXYCODONE IR 5 MG TABLET PO (12:23)
[2022-02-16] MEDS: ACETAMINOPHEN 325 MG TABLET 650 MG PO (12:29)
--- NOTE | 2022-02-16 12:30 | SUR.PHASEI ---
medicated for slight pain with oxycodone and tylenol. pt with no complaints, Dr barnard;christina spoke with pt, updated.
[2022-02-16 12:33] VITALS: BP 142/84; PULSE 75; RESP 14; TEMP 36.7; O2SAT 99
--- NOTE | 2022-02-16 16:27 | SUR.PHASEII ---
Late entry: Pt ready to go, assisted pt to dress, and then he left in stable condition.
== END 2022-02-16 13:00 | disposition home or self-care (01) ==
PROVIDERS: Family Provider Internal Medicine; PCP Internal Medicine; Referring Provider Surgery; Visit Provider Surgery
PROC: (CPT 49505; principal; 2022-02-16 08:45)
DX: K40.20 Bilateral inguinal hernia, without obstruction or gangrene, not specified as recurrent (principal); G47.33 Obstructive sleep apnea (adult) (pediatric); I45.10 Unspecified right bundle-branch block
CPT/HCPCS: 49505; 82962; J0690; J1100; J2405; J2704; J3010

== ENCOUNTER 2023-08-29 22:17 | Emergency (ER) | payer MEDICARE, SELFPAY ==
[2023-08-29 22:48] VITALS: BP 142/96; PULSE 133; RESP 18; TEMP 36.4; O2SAT 97
--- NOTE | 2023-08-29 22:52 | DI.RAD.S_ITS ---
PROCEDURE: XR CHEST 1V INDICATIONS: chest pain TECHNIQUE: One view of the chest was acquired. COMPARISON: [facility], CR, XR CHEST 2V, 06/07/2019, 10:05. FINDINGS: Surgical changes and devices: None. Lungs and pleura: Trace blunting the costophrenic angles unchanged. Mediastinum: Mediastinal contours appear normal. Heart size is enlarged. Bones and chest wall: No suspicious bony lesions. Overlying soft tissues appear unremarkable. IMPRESSION: No acute pulmonary process. Trace blunting the costophrenic angles possibly related to scarring versus effusions. Dictated by: Nanci Steiner M.D. on 08/29/2023 at 23:22 Approved by: Nanci Steiner M.D. on 08/29/2023 at 23:22
[2023-08-29 22:55] VITALS: PULSE 130; RESP 12
[2023-08-29 23:00] VITALS: PULSE 131; RESP 23
[2023-08-29 23:02] VITALS: BP 135/90; PULSE 130; RESP 15; O2SAT 95
[2023-08-29 23:10] LABS: Add Manual Diff / Slide Review NO; Basophils Absolute Auto 100 /uL (0-100); Basophils Percent Auto 0.9 % (0-2); Eosinophils Absolute Auto 300 /uL (0-450); Eosinophils Percent Auto 4.5 % (2-4); Hematocrit 45.6 % (41-53); Hemoglobin 15.2 g/dL (13.5-17.5); Lymphocytes Absolute Auto 2700 /uL (1100-4500); Lymphocytes Percent Auto 44.1 % (25-40); Mean Corpuscular HGB Conc 33.4 % (30-36); Mean Corpuscular Hemoglobin 30.9 PG (26-34); Mean Corpuscular Volume 92.5 fL (80-100); Monocytes Absolute Auto 700 /uL (0-900); Monocytes Percent Auto 11.3 % (3-14); Neutrophils Absolute Auto 2400 /uL (1500-7000); Neutrophils Percent Auto 39.2 % (50-75); Platelet Count 160 X10^3/uL (150-400); Red Blood Cell Count 4.93 X10^6/uL (4.5-5.9); Red Cell Distribution Width 15.3 % (11.6-14.8); White Blood Cell Count 6.2 X10^3/uL (4.5-11.0)
[2023-08-29 23:15] LABS: Prothrombin Time 11.3 SECONDS (9.4-12.5)
[2023-08-29 23:18] LABS: PTT Partial Thromboplastin Tim 31 SECONDS (25.1-36.5)
[2023-08-29 23:20] LABS: Potassium 4.3 mmol/L (3.4-5.1)
[2023-08-29 23:21] LABS: Alanine Aminotransferase 28 IU/L (<50); Albumin 4.1 g/dL (3.5-5.0); Albumin Globulin Ratio 1.2 (1.0-2.8); Alkaline Phosphatase 109 U/L (38-126); Aspartate Aminotransferase 34 IU/L (17-59); BUN Creatinine Ratio 18.3 (6-22); Bilirubin Total 0.7 mg/dL (0.2-1.3); Blood Urea Nitrogen 21 mg/dL (9-20); Calcium 9.6 mg/dL (8.4-10.2); Carbon Dioxide 25 mmol/L (22-32); Chloride 108 mmol/L (98-107); Creatine Kinase 47 U/L (55-170); Estimated Glomerular Filt Rate > 60 mL/min (>60); Globulin 3.5 g/dL (1.7-4.1); Glucose 92 mg/dL (80-110); Lipase 162 U/L (23-300); Magnesium 2.2 mg/dL (1.6-2.3); Sodium 142 mmol/L (137-145); Total Protein 7.6 g/dL (6.3-8.2)
[2023-08-29 23:28] LABS: HEMOLYSIS 73 (0-50)
[2023-08-29 23:30] VITALS: BP 123/86; PULSE 134; RESP 23; O2SAT 94
[2023-08-30] VITALS: BP 127/87; PULSE 134; RESP 19; O2SAT 94
--- NOTE | 2023-08-30 00:26 | ED.ARRPALP ---
HPI - Arrhythmia/Palpitations General Chief Complaint: Arrhythmia/Palpitations Stated Complaint: elevated heartrate Time Seen by Provider: 08/30/23 00:02 Source: patient and family Mode of arrival: Ambulatory History of Present Illness HPI narrative: Gentleman in his usual state of excellent health comes to the ED because his apple watch told him that he was in atrial fibrillation. Has no symptoms at all of any kind. Specifically he denies chest pain or shortness of breath or lightheadedness, nausea, vomiting, abdominal pain, back pain. To his knowledge he is never had an atrial arrhythmia before nor has he had any cardiac disease of any kind. He denies diabetes and hypertension and hypercholesterolemia. He is not lifelong nonsmoker. Drinks 1 dose of caffeine each morning with a cup of coffee but takes no other stimulants including cold medicines. Related Data Previous Rx's Medication Instructions Recorded sildenafil 100 mg tablet 50 - 100 mg (0.5 - 1 x 100 mg) PO 10/17/22 DAILY PRN sexual activity #14 tabs Allergies Allergy/AdvReac Type Severity Reaction Status Date / Time No Known Drug Allergies Allergy Verified 08/29/23 22:48 Patient History Medical History Easy bruisability Erectile dysfunction History of adenomatous polyp of colon (07/30/12) deaf/hard of hearing specialist associated with adverse incidents Mixed hyperlipidemia Obstructive sleep apnea syndrome (~2009) Rheumatic fever (1962) Right bundle branch block (RBBB) with left anterior fascicular block (LAFB) (~2006) Surgical History No history of previous surgery Family History Brother Age: 79 Family hx of colon cancer Father Cancer Liver cancer Grandfather Heart disease Mother Pneumonia Rheumatoid arthritis Paraplegia Social History marital status: number of children: 2 household members: spouse lives independently: Yes caregiver/support person: No housing: house pets and animals: Yes education level: high school occupational status: other current occupational exposures/hazards: No suman/protestant: Jainism travel history: other leisure activities: other Smoking Status: Former smoker Tobacco: How many years used: 3 Smokeless tobacco user: other quit status: quit date established second hand exposure: No alcohol intake: current substance use type: does not use Smoking Status: Former smoker alcohol intake frequency: 0-2 drinks per day Substance Use Type: does not use Exam Narrative Exam Narrative: GENERAL: Alert, cooperative and in no distress. HEAD: Atraumatic. Normocephalic. EYES: Sclera are clear without icterus. Extraocular movements are full. ENT: No rhinorrhea. NECK: Supple. Full range of motion. CARDIOVASCULAR: Normal rate and rhythm without murmur gallop or rub. RESPIRATORY: Clear to auscultation. Breath sounds equal bilaterally. No wheezes, rales, or rhonchi. GASTROINTESTINAL: Abdomen soft, non-tender, nondistended. EXTREMITIES: No edema, full range of motion. No obvious trauma. BACK: Normal inspection, NEURO: Nonfocal examination, normal speech, SKIN: No rash or erythema of visible areas PSYCH: Normally oriented. Normal range of affect. Appropriate behavior Initial Vital Signs Initial Vital Signs: Vital Signs Temperature 97.5 F L 08/29/23 22:48 Pulse Rate 133 H 08/29/23 22:48 Respiratory Rate 18 08/29/23 22:48 Blood Pressure 142/96 H 08/29/23 22:48 Pulse Oximetry 97 08/29/23 22:48 Oxygen Delivery Method Room Air 08/29/23 22:48 Course Orders Ordered: ED Orders 08/29/23 22:52 XR chest 1V Stat EKG-12 Lead Stat 08/29/23 23:00 Complete Blood Count AUTO DIFF Stat Comprehensive Metabolic Panel Stat Lipase Stat Magnesium Stat PTT Partial Thromboplastin Paco Stat Prothrombin Time INR Stat Troponin & CK Cardiac Panel Stat Discontinued Medications Apixaban (Apixaban 5 Mg Tablet) 5 mg PO NOW ONE Stop: 08/30/23 00:27 Aspirin (Aspirin 81 Mg Chew Tab) 324 mg PO NOW ONE Stop: 08/29/23 22:53 Diltiazem HCl (Diltiazem Cd 120 Mg Cap) 120 mg PO NOW ONE Stop: 08/30/23 00:27 Vital Signs Vital signs: Vital Signs - 8 hr 08/29/23 22:48 Temperature 97.5 F L Pulse Rate 133 H Respiratory Rate 18 Blood Pressure 142/96 H Pulse Oximetry 97 Oxygen Delivery Method Room Air MDM - Arrhythmia/Palpitations Lab Data 08/29/23 23:00 08/29/23 23:00 Labs: Lab Results 08/29/23 Range/Units 23:00 WBC 6.2 (4.5-11.0) X10^3/uL RBC 4.93 (4.5-5.9) X10^6/uL Hgb 15.2 (13.5-17.5) g/dL Hct 45.6 (41-53) % MCV 92.5 (80-100) fL MCH 30.9 (26-34) PG MCHC 33.4 (30-36) % RDW 15.3 H (11.6-14.8) % Plt Count 160 (150-400) X10^3/uL Neut % (Auto) 39.2 L (50-75) % Lymph % (Auto) 44.1 H (25-40) % [place] % (Auto) 11.3 (3-14) % Eos % (Auto) 4.5 H (2-4) % Baso % (Auto) 0.9 (0-2) % Neut # (Auto) 2400 (7192-8659) /uL Lymph # (Auto) 2700 (9047-5186) /uL [place] # (Auto) 700 (0-900) /uL Eos # (Auto) 300 (0-450) /uL Baso # (Auto) 100 (0-100) /uL PT 11.3 (9.4-12.5) SECONDS INR 1.0 (0.9-1.3) APTT 31 (25.1-36.5) SECONDS Sodium 142 (137-145) mmol/L Potassium 4.3 (3.4-5.1) mmol/L Chloride 108 H (98-107) mmol/L Carbon Dioxide 25 (22-32) mmol/L BUN 21 H (9-20) mg/dL Creatinine 1.15 (0.66-1.25) mg/dL Estimated GFR > 60 (>60) mL/min BUN/Creatinine Ratio 18.3 (6-22) Glucose 92 (80-110) mg/dL Calcium 9.6 (8.4-10.2) mg/dL Magnesium 2.2 (1.6-2.3) mg/dL Total Bilirubin 0.7 (0.2-1.3) mg/dL AST 34 (17-59) IU/L ALT 28 (<50) IU/L Alkaline Phosphatase 109 (38-126) U/L Total Creatine Kinase 47 L (55-170) U/L Troponin I 0.020 (0.01-0.034) ng/mL Total Protein 7.6 (6.3-8.2) g/dL Albumin 4.1 (3.5-5.0) g/dL Globulin 3.5 (1.7-4.1) g/dL Albumin/Globulin Ratio 1.2 (1.0-2.8) Lipase 162 (23-300) U/L ECG Data Interpretation: ECG obtained at 10:58 p.m. shows atrial flutter at 2-1 AV conduction. There is a right bundle-branch block but no acute ST or T-wave change. MDM Narrative Medical decision making narrative: Gentleman who comes to the ED with asymptomatic atrial flutter. I do not think it is reliable to say that the atrial flutter is only been present since the watch alerted him to the fact since he is asymptomatic completely. I do not think cardioversion in the ED is appropriate in this setting given the fact that it may have been present for longer than 24 hours. I will start him on a very low dose rate control medication and apixaban after a detailed risk benefit discussion with him. CHADS2 Vasc score is 2 based on his age alone. I recommend outpatient follow-up otherwise. Careful return precautions given. Discharge Plan Departure Patient Disposition: Home Clinical Impression: Atrial flutter Instructions: DI for Atrial Flutter Activity Restrictions/Additional Instructions: You have atrial flutter. Fortunately, you are tolerating it quite well. To help control her rate I recommend diltiazem once daily. Go ahead and take your next dose as soon as you get at the pharmacy tomorrow. We have given you 1 here before you go home. I also recommend apixaban 5 mg twice daily this is the medicine to prevent stroke. Talk to your doctor later today to discuss further follow-up as an outpatient to consider outpatient cardioversion and further cardiac testing. In the meantime, you should return to the ED if you develop chest pain or shortness of breath or fainting or other severe symptoms. Since the diltiazem I am giving you has a tendency to lower the blood pressure, I recommend that you be careful when transitioning from lying to sitting or sitting to standing to make sure that it does make her blood pressure go too low and put you at risk for falling down. I recommend you pause between these activities to make sure that you feel steady before walking away. Prescriptions: No Action sildenafil 100 mg tablet 50 - 100 mg PO DAILY PRN (Reason: sexual activity) Qty: 14 6RF Rx Instructions: administer 30 minutes to 4 hours before activity Referrals: Manjinder Hernandez MD [Primary Care Provider] - Stand Alone Forms: Patient Portal/API
[2023-08-30 00:30] VITALS: BP 134/93; PULSE 134; RESP 18; O2SAT 95
[2023-08-30] MEDS: dilTIAZem CD 120 MG CAP PO (00:46)
[2023-08-30] MEDS: APIXABAN 5 MG TABLET PO (00:46)
[2023-08-30] MEDS: ASPIRIN 81 MG CHEW TAB 324 MG PO (00:49)
== END 2023-08-30 01:00 | disposition home or self-care (01) ==
PROVIDERS: Emergency Provider Family Medicine Addiction Medicine; Family Provider Internal Medicine; PCP Internal Medicine
DX: I48.92 Unspecified atrial flutter (principal)
CPT/HCPCS: 36415; 71045; 80053; 82550; 83690; 83735; 84484; 85025; 85610; 85730; 93005; 93010; 99284

== ENCOUNTER → 2023-10-11 09:42 | Outpatient (CLI) | payer OTHER, SELFPAY | PROVIDERS: Family Provider Internal Medicine; PCP Internal Medicine; Referring Provider Internal Medicine; Visit Provider Internal Medicine | DX: I48.91 Unspecified atrial fibrillation (principal) | CPT/HCPCS: 93246 ==

== ENCOUNTER → 2023-11-06 09:10 | Outpatient (CLI) | payer OTHER, SELFPAY ==
--- NOTE | 2023-11-06 09:13 | DI.ECHO.S_ITS ---
[facility] +---------+ : : [address] : : : : [id number] : : : : Phone: [phone]+ Echocardiogram Report + + :Name: TANISHA WARD Study Date: 11/06/2023 Height: 74 in : :[facility] ReadingLocation: Weight: 234 lb : : Gender: Male BSA: 2.3 m2 : :: 1940 Age: 83 yrs BP: 151/89 mmHg: :Reason For Study: ATRIAL FLUTTER : :Ordering Physician: MISSY, : :NADIYA Nieves Performed By: Nikhil Saldana : :Referring: NADIYA LOUIS : + + Interpretation Summary Borderline concentric left ventricular hypertrophy with ejection fraction 60- 65%. The left atrium is borderline dilated. No significant valvular abnormality. Procedure: A two-dimensional transthoracic echocardiogram with color flow and Doppler was performed. The study quality was technically adequate. The patient was in atrial flutter with heart rates between 74-92 bpm during the exam. Left Ventricle: The left ventricle is normal in size. There is borderline concentric left ventricular hypertrophy. The ejection fraction is estimated to be 60-65%. There are no focal wall motion abnormalities. Right Ventricle: The right ventricle is normal in size and function. Atria: The left atrium is borderline dilated. Right atrial size is normal. Mitral Valve: The mitral valve is normal in structure and function. There is no mitral valve stenosis. There is trace mitral regurgitation. Aortic Valve: The aortic valve is trileaflet. There is mild aortic valve sclerosis. There is no aortic valve stenosis. There is trace aortic regurgitation. Tricuspid Valve: The tricuspid valve is normal in structure and function. There is no tricuspid stenosis. There is mild tricuspid regurgitation. Pulmonic Valve: The pulmonic valve is not well visualized. There is no pulmonic valvular stenosis. There is a trace or physiologic amount of pulmonic regurgitation. Great Vessels: The aortic root is mildly dilated. The dimensions of the ascending aorta are normal. The inferior vena cava was not visualized. Pericardium/ Pleura There is no pericardial effusion. There is no pleural effusion. MMode/2D Measurements & Calculations LVIDd: 5.1 cm LVOT diam: 2.2 cm LVIDs: 3.8 cm Ao root diam: 4.0 cm FS: 26.0 % asc Aorta Diam: 3.5 cm IVSd: 1.4 cm Ao Arch Diam (Prox Trans): 2.6 cm LVPWd: 1.2 cm LV thibodeaux. diameter/BSA (cm/m^2): 2.2 LV sys. diameter/BSA (cm/m^2): 1.6 LA A2 area: 24.8 cm2 RA long axis: 5.0 cm LA A4 area: 27.3 cm2 RA area: 16.0 cm2 LA length (vol): 6.8 cm RA vol: 43.8 ml LA vol: 84.5 ml RA : 18.8 ml/m2 LA vol index: 36.4 ml/m2 RVD1 (basal): 4.7 cm RVD2 (mid): 4.3 cm TAPSE: 2.6 cm Doppler Measurements & Calculations Ao V2 max: 138.2 cm/sec LVOT Max Pablo: 100.3 cm/sec Ao V2 mean: 102.6 cm/sec LV V1 max P.0 mmHg Ao max P.9 mmHg LV V1 VTI: 19.3 cm Ao mean P.8 mmHg ANDRES(I,D): 2.7 cm2 Ao V2 VTI: 26.8 cm ANDRES(V,D): 2.7 cm2 sev ratio: 0.72 ANDRES indexed to BSA (cm^2/m^2): 1.1 MV E max pablo: 60.3 cm/sec TR max pablo: 224.8 cm/sec MV A max pablo: 69.3 cm/sec TR max P.2 mmHg MV E/A: 0.87 PA V2 max: 134.0 cm/sec Med Peak E' Pablo: 9.1 cm/sec PA V2 mean: 100.2 cm/sec E/E' med: 6.6 PA mean P.4 mmHg Lat Peak E' Pablo: 7.2 cm/sec PA pr(Accel): 27.6 mmHg E/E' lat: 8.4 E/e' average: 7.5 MV dec time: 0.19 sec SV(LVOT): 71.1 ml Electronically signed by: Yris Earl on Reading Physician:11/07/2023 12:47 PM
== END ==
LOC: ECHO 09:13
PROVIDERS: Family Provider Internal Medicine; PCP Internal Medicine; Referring Provider Internal Medicine; Visit Provider Internal Medicine
DX: I08.2 Rheumatic disorders of both aortic and tricuspid valves (principal); I77.810 Thoracic aortic ectasia; I48.92 Unspecified atrial flutter; I45.2 Bifascicular block
CPT/HCPCS: 93306

== ENCOUNTER → 2024-01-05 10:23 | Outpatient (CLI) | payer MEDICARE, SELFPAY ==
[2024-01-05 10:58] LABS: Add Manual Diff / Slide Review NO; Basophils Absolute Auto 0 /uL (0-100); Basophils Percent Auto 0.9 % (0-2); Eosinophils Absolute Auto 200 /uL (0-450); Eosinophils Percent Auto 3.9 % (2-4); Hematocrit 42.3 % (41-53); Hemoglobin 14.2 g/dL (13.5-17.5); Lymphocytes Absolute Auto 1600 /uL (1100-4500); Lymphocytes Percent Auto 34.5 % (25-40); Mean Corpuscular HGB Conc 33.6 % (30-36); Mean Corpuscular Hemoglobin 31.4 PG (26-34); Mean Corpuscular Volume 93.6 fL (80-100); Monocytes Absolute Auto 600 /uL (0-900); Monocytes Percent Auto 13.4 % (3-14); Neutrophils Absolute Auto 2200 /uL (1500-7000); Neutrophils Percent Auto 47.3 % (50-75); Platelet Count 150 X10^3/uL (150-400); Red Blood Cell Count 4.52 X10^6/uL (4.5-5.9); Red Cell Distribution Width 15.2 % (11.6-14.8); White Blood Cell Count 4.7 X10^3/uL (4.5-11.0)
[2024-01-05 11:17] LABS: Alanine Aminotransferase 21 IU/L (<50); Albumin 3.9 g/dL (3.5-5.0); Albumin Globulin Ratio 1.5 (1.0-2.8); Alkaline Phosphatase 87 U/L (38-126); Aspartate Aminotransferase 23 IU/L (17-59); BUN Creatinine Ratio 18.5 (6-22); Bilirubin Total 0.7 mg/dL (0.2-1.3); Blood Urea Nitrogen 23 mg/dL (9-20); Calcium 9.2 mg/dL (8.4-10.2); Carbon Dioxide 27 mmol/L (22-32); Chloride 110 mmol/L (98-107); Estimated Glomerular Filt Rate 58 mL/min (>60); Globulin 2.6 g/dL (1.7-4.1); Glucose 52 mg/dL (80-110); HEMOLYSIS < 15 (0-50); Potassium 4.1 mmol/L (3.4-5.1); Sodium 142 mmol/L (137-145); Total Protein 6.5 g/dL (6.3-8.2)
[2024-01-05 11:48] LABS: TSH w/ Reflex to FT4 0.66 uIU/mL (0.47-4.68)
== END ==
PROVIDERS: Family Provider Internal Medicine; PCP Internal Medicine; Referring Provider Nurse Practitioner Family; Visit Provider Nurse Practitioner Family
DX: I48.92 Unspecified atrial flutter (principal); I48.0 Paroxysmal atrial fibrillation
CPT/HCPCS: 36415; 80053; 84443; 85025

== ENCOUNTER → 2024-02-12 11:59 | Outpatient (CLI) | payer MEDICARE, SELFPAY ==
[2024-02-12 13:10] LABS: Add Manual Diff / Slide Review NO; Basophils Absolute Auto 0 /uL (0-100); Basophils Percent Auto 0.9 % (0-2); Eosinophils Absolute Auto 200 /uL (0-450); Eosinophils Percent Auto 3.8 % (2-4); Hematocrit 44.1 % (41-53); Hemoglobin 14.6 g/dL (13.5-17.5); Lymphocytes Absolute Auto 1700 /uL (1100-4500); Lymphocytes Percent Auto 34.9 % (25-40); Mean Corpuscular HGB Conc 33.2 % (30-36); Mean Corpuscular Hemoglobin 31.1 PG (26-34); Mean Corpuscular Volume 93.8 fL (80-100); Monocytes Absolute Auto 600 /uL (0-900); Monocytes Percent Auto 11.9 % (3-14); Neutrophils Absolute Auto 2400 /uL (1500-7000); Neutrophils Percent Auto 48.5 % (50-75); Platelet Count 159 X10^3/uL (150-400); Red Cell Distribution Width 15.7 % (11.6-14.8); White Blood Cell Count 4.9 X10^3/uL (4.5-11.0)
[2024-02-12 13:37] LABS: Alanine Aminotransferase 17 IU/L (<50); Albumin 4.1 g/dL (3.5-5.0); Albumin Globulin Ratio 1.3 (1.0-2.8); Alkaline Phosphatase 104 U/L (38-126); Aspartate Aminotransferase 24 IU/L (17-59); BUN Creatinine Ratio 17.1 (6-22); Bilirubin Total 1.2 mg/dL (0.2-1.3); Blood Urea Nitrogen 22 mg/dL (9-20); Calcium 8.9 mg/dL (8.4-10.2); Carbon Dioxide 26 mmol/L (22-32); Chloride 110 mmol/L (98-107); Estimated Glomerular Filt Rate 56 mL/min (>60); Globulin 3.2 g/dL (1.7-4.1); Glucose 93 mg/dL (80-110); HEMOLYSIS < 15 (0-50); Potassium 4.8 mmol/L (3.4-5.1); Sodium 141 mmol/L (137-145); Total Protein 7.3 g/dL (6.3-8.2)
[2024-02-12 14:05] LABS: TSH w/ Reflex to FT4 0.48 uIU/mL (0.47-4.68)
== END ==
PROVIDERS: Family Provider Internal Medicine; PCP Internal Medicine; Referring Provider Nurse Practitioner Family; Visit Provider Nurse Practitioner Family
DX: I48.0 Paroxysmal atrial fibrillation (principal); I48.92 Unspecified atrial flutter
CPT/HCPCS: 36415; 80053; 84443; 85025

== ENCOUNTER → 2024-04-02 14:42 | Outpatient (CLI) | payer MEDICARE, SELFPAY ==
--- NOTE | 2024-04-02 14:43 | DI.US.S_ITS ---
PROCEDURE: US CAROTID DOPPLER BI INDICATIONS: Aneurysm of other specified arteries TECHNIQUE: Color and pulse Doppler interrogation was performed of both carotid systems, with image documentation and velocity measurements. COMPARISON: None. FINDINGS: Stenosis calculations are based on SRU (Society of Radiologists in Ultrasound) criteria. Right side: Brachial blood pressure: 140/82 mm Hg. Common carotid artery peak systolic velocity: 87 cm/sec. Internal carotid artery peak systolic velocity: 84 cm/sec. Internal carotid artery end diastolic velocity: 23 cm/sec. External carotid artery peak systolic velocity: 60 cm/sec. ICA/CCA peak systolic ratio: 1 . Weir scale imaging description: Mild atherosclerotic plaque Percent internal carotid artery stenosis: Less than 50 percent . Vertebral artery: Flow direction is antegrade. Left side: Brachial blood pressure: 134/80 poor mm Hg. Common carotid artery peak systolic velocity: 95 cm/sec. Internal carotid artery peak systolic velocity: 84 cm/sec. Internal carotid artery end diastolic velocity: 24 cm/sec. External carotid artery peak systolic velocity: 70 cm/sec. ICA/CCA peak systolic ratio: 1.1 . Weir scale imaging description: Mild atherosclerotic plaque Percent internal carotid artery stenosis: Less than 50 percent . Vertebral artery: Flow direction is antegrade. IMPRESSION: Less than 50 percent stenosis of the internal carotid arteries by peak systolic velocity criteria. Dictated by: Jorgito Copeland M.D. on 04/02/2024 at 18:31 Approved by: Jorgito Copeland M.D. on 04/02/2024 at 18:36
== END ==
PROVIDERS: Family Provider Internal Medicine; PCP Internal Medicine; Referring Provider Surgery; Visit Provider Surgery
DX: I72.8 Aneurysm of other specified arteries (principal); I65.23 Occlusion and stenosis of bilateral carotid arteries
CPT/HCPCS: 93880

== ENCOUNTER → 2025-03-25 14:52 | Outpatient (CLI) | payer MEDICARE, SELFPAY ==
--- NOTE | 2025-03-25 14:54 | DI.RAD.S_ITS ---
PROCEDURE: XR CHEST 2V INDICATIONS: cough TECHNIQUE: 2 views of the chest were acquired. COMPARISON: [facility], CR, XR CHEST 1V, 08/29/2023, 23:11. FINDINGS: Heart, mediastinum and pulmonary vascular: Heart is mildly enlarged Mediastinum is unremarkable. Pulmonary vascular is normal. Lungs: Clear Pleural spaces: Normal-no effusions or pneumothorax. Bones and soft tissues: Surgical clips present in the medial left lung apex. Moderate old compression fracture seen throughout the thoracic spine IMPRESSION: Mild stable cardiomegaly. No acute disease Dictated by: Manjinder Vuong M.D. on 03/26/2025 at 11:46 Approved by: Manjinder Vuong M.D. on 03/26/2025 at 11:47
== END ==
PROVIDERS: Family Provider Internal Medicine; PCP Internal Medicine; Referring Provider Internal Medicine; Visit Provider Internal Medicine
DX: I51.7 Cardiomegaly (principal); R05.9 Cough, unspecified
CPT/HCPCS: 71046

== ENCOUNTER → 2025-04-03 13:24 | Outpatient (CLI) | payer MEDICARE, SELFPAY | LOC: RESP 13:25 | PROVIDERS: Family Provider Internal Medicine; PCP Internal Medicine; Referring Provider Internal Medicine; Visit Provider Internal Medicine | DX: R05.9 Cough, unspecified (principal); Z87.891 Personal history of nicotine dependence; R94.2 Abnormal results of pulmonary function studies | CPT/HCPCS: 94060; 94726; 94729 ==